=== PATIENT | female | born 1960 | race Caucasian/White ===

== ENCOUNTER → 2023-05-22 | Outpatient (RCR) | payer OTHER ==
[~2023-05-22] MED LIST: CARISOPRODOL; ULTRAM 50MG50 MG PO; Z.0.AMBIEN5 MG PO; Z.0.TORADOL10 MG PO; Z.0.XANAX2 MG PO; [UNRECOGNIZED DRUG - OTHER]
== END ==
LOC: OT 13:58
PROVIDERS: ATTEND Orthopaedic Surgery
DX: S62.102A Fracture of unspecified carpal bone, left wrist, initial encounter for closed fracture (principal)

== ENCOUNTER 2024-05-17 14:14 | Emergency (ER) | payer OTHER ==
[~2024-05-17] VITALS: Ht 154.9 cm; Wt 38.6 kg
[2024-05-17 14:35] VITALS: RESP 16; TEMP 98.1
[2024-05-17] MEDS: KETOROLAC TROMETHAMINE 30 MG/ML VIAL IM STA (15:55)
[2024-05-17 16:00] VITALS: PULSE 82; O2SAT 98
[2024-05-17] MEDS ORDERED: NAPROXEN250 MG PO (16:43)
== END 2024-05-17 17:08 | disposition home or self-care (01) ==
LOC: ER 14:30
DX: S93.692A Other sprain of left foot, initial encounter (principal); X50.1XXA Overexertion from prolonged static or awkward postures, initial encounter; Y93.01 Activity, walking, marching and hiking; Y92.89 Other specified places as the place of occurrence of the external cause; M77.52 Other enthesopathy of left foot and ankle; G47.00 Insomnia, unspecified; F41.9 Anxiety disorder, unspecified
CPT/HCPCS: 73562; 73610; 73630; 99283; J1885